=== PATIENT | male | born 1985 | race Two or more races ===

== ENCOUNTER 2018-11-23 03:25 | Emergency (ER) | payer OTHER ==
[~2018-11-23] VITALS: Ht 182.9 cm; Wt 74.8 kg
[2018-11-23 03:46] VITALS: BP 139/85
[2018-11-23] MEDS ORDERED: LET TOPICAL SOLN 5 ML TOP ONE (06:45)
[2018-11-23] MEDS ORDERED: BACITRACIN TOP OINT 1 UD PKG TOP ONE (06:45)
[2018-11-23] MEDS ORDERED: LIDOCAINE 1% (LOCAL ANESTH.) PF 5ml SDV ID ONE (06:45)
== END 2018-11-23 08:14 | disposition home or self-care (01) ==
LOC: ER 03:25
DX: S81.811A Laceration without foreign body, right lower leg, initial encounter (principal); Z88.4 Allergy status to anesthetic agent; Z88.1 Allergy status to other antibiotic agents; Z95.1 Presence of aortocoronary bypass graft; X95.8XXA Assault by other firearm discharge, initial encounter; Y93.89 Activity, other specified; Y92.008 Other place in unspecified non-institutional (private) residence as the place of occurrence of the external cause; Y99.8 Other external cause status
CPT/HCPCS: 12001; 73590